=== PATIENT | female | born 1990 | race Hispanic/Latino ===

== ENCOUNTER 2023-04-25 04:37 | Emergency (ER) | payer SELFPAY ==
[2023-04-25] VITALS (10 sets, daily range): BP systolic 111–131; BP diastolic 72–86; PULSE 65–87; RESP 15–18; TEMP 36.5–36.8; O2SAT 98–100
--- NOTE | ~2023-04-25 | XR_ITS ---
Lumbosacral Spine: AP and lateral views Clinical History: Pain Findings: The normal lordotic curve is maintained. The vertebral bodies and posterior elements are i ntact. The intervertebral disc spaces are preserved. The sacroiliac joints are normally outlined. Impression: No significant abnormality. Reviewed, dictated and finalized at [facility]. [employer] Impression: No significant abnormality.
[2023-04-25] MEDS: HYDROcodone/acetaminophen (*CRX) 5-325 MG TABLET 1 TAB PO (08:54)
[2023-04-25 10:49] LABS: Appearance Urine Turbid (Clear); Bacteria Urine Rare /hpf; Bilirubin Urine Negative (Negative); Blood Urine Trace (Negative); Color Urine Yellow (Yellow); Glucose Urine UA Negative (Negative); Ketones Urine Negative (Negative); Leukocyte Esterase Ur 1+ LEU/UL (Negative); Nitrate Urine Negative (Negative); Non Pathogenic Casts 0-2; Protein Urine Negative (Negative); Squamous Epithelial Cell Urine Few /hpf (Few); Urobilinogen Urine 0.2 mg/dL (<2.0); pH Urine 5.5 (5.0-9.0)
[2023-04-25 11:11] LABS: Add Urine Microscopic? YES
--- NOTE | 2023-04-25 11:40 | ED.BACK ---
HPI - Back Pain/Injury General Chief Complaint: Back Pain/Injury Stated Complaint: low back pain Time Seen by Provider: 04/25/23 06:56 Source: patient Mode of arrival: ambulatory Limitations: no limitations History of Present Illness HPI Narrative: 32-year-old otherwise healthy here with complaints of right flank and lower back pain which started 3 days ago. 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 Patient states that it occasionally sharp shooting in nature. She denies any bladder or bowel incontinence. No previous history of back injuries or DJD MD elicited complaint: back pain Onset (ago): day(s) (2) Timing: constant Quality: sharp Location: lumbar spine Radiation: none Exacerbating factors: movement Relieving factors: immobilization Context: while lifting Associated symptoms: denies other symptoms Related Data Allergies Allergy/AdvReac Type Severity Reaction Status Date / Time No Known Allergies Allergy Verified 03/27/16 10:37 Review of Systems Review of Systems: All systems reviewed & are unremarkable except as noted in HPI and below Constitutional: Constitutional: Reports no additional constitutional complaints Eyes: Eyes: Reports no additional eye complaints ENT: Reports system reviewed and no additional complaints, except as documented Cardiovascular: Cardiovascular: Reports no additional cardiovascular complaints Respiratory: Respiratory: Reports no additional respiratory complaints Gastrointestinal: Gastrointestinal: Reports no additional gastrointestinal complaints Musculoskeletal: Musculoskeletal: Reports as per HPI Neurologic: Reports system reviewed and no additional complaints, except as documented Psychiatric: Psychiatric: Reports no additional psychiatric complaints Exam Narrative: GENERAL: Well-appearing, well-nourished, and in no acute distress. HEAD: Normocephalic, atraumatic. EYES: PERRLA and EOMI. ENT: Nares clear, no rhinorrhea or epistaxis. Mucous membranes moist. NECK: Supple. CHEST: Clear to auscultation. No respiratory distress. HEART: Regular rate and rhythm. No murmur heard. Normal peripheral pulses. ABDOMEN: Soft, nontender, nondistended, normal active bowel sounds. Mild CVA tenderness on the right side EXTREMITIES: Normal range of motion. No edema. SKIN: Warm, dry, no rash. NEURO: No focal deficits. Alert and oriented x3. PSYCH: Normal mood and affect. Course Course Emergency Course: Patient is feeling much better after p.o. [place] able to ambulate. I did inform her and her about her lab work, x-ray findings. She feels comfortable going home Vital Signs Vital signs: Vital Signs Temperature 36.5 C 04/25/23 04:38 Pulse Rate 87 04/25/23 04:38 Respiratory Rate 16 04/25/23 04:38 Blood Pressure 131/76 04/25/23 04:38 Pulse Oximetry 99 04/25/23 04:38 Oxygen Delivery Room Air 04/25/23 04:38 Temperature 36.7 C 04/25/23 09:00 Pulse Rate 68 04/25/23 09:00 Respiratory Rate 18 04/25/23 09:00 Blood Pressure 122/85 04/25/23 09:00 Pulse Oximetry 99 04/25/23 09:00 Oxygen Delivery Room Air 04/25/23 04:38 MDM - Back Pain/Injury Lab Data Labs: Lab Results 04/25/23 Range/Units 10:29 Urine Color Yellow (Yellow) Urine Appearance Turbid H (Clear) Urine pH 5.5 (5.0-9.0) Ur Specific [address] 1.020 (1.001-1.035) Urine Protein Negative (Negative) mg/dL Urine Glucose (UA) Negative (Negative) mg/dL Urine Ketones Negative (Negative) mg/dL Ur Blood (Man) Trace (Negative) Urine Nitrate Negative (Negative) Urine Bilirubin Negative (Negative) Urine Urobilinogen 0.2 (<2.0) mg/dL Leukocyte Esterase Rfl 1+ H (Negative) [place]/UL Urine RBC 3-5 H (0-2) /hpf Urine WBC 6-10 H /hpf Ur Squamous Epith Cells Few (Few) /hpf Urine Bacteria Rare /hpf Urine Casts 0-2 UCG Bedside Result Negativ
== END 2023-04-25 12:07 | disposition home or self-care (01) ==
PROVIDERS: Emergency Provider Family Medicine
DX: S39.012A Strain of muscle, fascia and tendon of lower back, initial encounter (principal); X58.XXXA Exposure to other specified factors, initial encounter
CPT/HCPCS: 72100; 81001; 81025; 87086; 99283; A9270